=== PATIENT | female | born 1990 | race Two or more races ===

== ENCOUNTER 2024-09-15 09:04 | Outpatient (CLI) | payer MEDICAID, SELFPAY ==
[2024-09-15 09:10] VITALS: BP 128/85; PULSE 77
[2024-09-15 09:19] VITALS: BMI 32.2
[2024-09-15 09:20] VITALS: BP 128/85; PULSE 77; RESP 18; RESP 98; TEMP 36.8
[2024-09-15] MEDS: BETAMET ACET/BETAMET NA PH (Celestone) 6 MG/ML VIAL 12 MG IM (09:43)
== END 2024-09-15 09:45 | disposition home or self-care (01) ==
LOC: S4S1 09:06 → S4SX 09:06
PROVIDERS: PCP Family Medicine; Referring Provider Student in an Organized Health Care Education/Training Program; Visit Provider Student in an Organized Health Care Education/Training Program
DX: Z34.83 Encounter for supervision of other normal pregnancy, third trimester (principal); Z36.89 Encounter for other specified antenatal screening; Z3A.34 34 weeks gestation of pregnancy
CPT/HCPCS: 59025; 96372; J0702

== ENCOUNTER 2024-09-16 09:50 | Outpatient (CLI) | payer MEDICAID, SELFPAY ==
[2024-09-16 09:54] VITALS: BP 107/60; PULSE 78; RESP 16; TEMP 36.6; O2SAT 99
[2024-09-16 10:04] VITALS: BMI 32.6
[2024-09-16 10:06] VITALS: BP 107/60; PULSE 78; RESP 16; RESP 99; TEMP 36.6
== END 2024-09-16 10:30 | disposition home or self-care (01) ==
LOC: S4S1 09:51 → S4SX 09:51
PROVIDERS: PCP Student in an Organized Health Care Education/Training Program; Referring Provider Student in an Organized Health Care Education/Training Program; Visit Provider Student in an Organized Health Care Education/Training Program
DX: Z34.83 Encounter for supervision of other normal pregnancy, third trimester (principal); Z36.89 Encounter for other specified antenatal screening; Z3A.34 34 weeks gestation of pregnancy
CPT/HCPCS: 59025